=== PATIENT | male | born 1990 | race Caucasian/White ===

== ENCOUNTER 2024-05-20 17:15 | Inpatient (IN) | payer SELFPAY ==
[2024-05-20 17:53] VITALS: BMI 31.1
[2024-05-20] MEDS ORDERED: NALOXONE (NYS OPIOID OVERDOSE PROGRAM) 4 MG/0.1 ML SPRAY NS PRN (18:28)
[2024-05-20] MEDS ORDERED: BENZONATATE 200 MG CAPSULE PO PRN (18:28)
[2024-05-20] MEDS ORDERED: MAG HYDROX/AL HYDROX/SIMETH 30 ML UNIT-DOSE CUP PO PRN (18:28)
[2024-05-20] MEDS ORDERED: POLYETHYLENE GLYCOL (HEALTHYLAX) 3350 17 GM PACKET PO PRN (18:28)
[2024-05-20] MEDS ORDERED: ACETAMINOPHEN 325 MG TABLET (FP) PO PRN (18:28)
[2024-05-20] MEDS ORDERED: DICYCLOMINE HCL 10 MG CAPSULE PO PRN (18:28)
[2024-05-20] MEDS ORDERED: MAGNESIUM HYDROX 2400MG/30ML ORAL SUSPENSION 30 ML CUP PO PRN (18:28)
[2024-05-20] MEDS ORDERED: ONDANSETRON *ODT* 4 MG TABLET SL PRN (18:28)
[2024-05-20] MEDS ORDERED: LOPERAMIDE HCL 2 MG CAPSULE PO PRN (18:28)
[2024-05-20] MEDS ORDERED: BENZOCAINE/MENTHOL (CHLORASEPTIC ) LOZENGE MM PRN (18:28)
[2024-05-20] MEDS ORDERED: guaiFENesin 600 MG TABLET.ER (FP) PO PRN (18:28)
[2024-05-20] MEDS ORDERED: BISMUTH SUBSALICYLATE 524 MG/30 ML PO PRN (18:28)
[2024-05-20] MEDS ORDERED: NALOXONE (NARCAN) HCL 4 MG/0.1 ML SPRAY NS PRN (18:28)
[2024-05-20] MEDS ORDERED: IBUPROFEN 400 MG TABLET (FP) PO PRN (18:28)
[2024-05-20] MEDS ORDERED: ALBUTEROL SO4 HFA INHALER IH PRN (18:40)
[2024-05-20] MEDS: THIAMINE 100 MG TABLET PO SCH (22:00)
[2024-05-20] MEDS: METHOCARBAMOL 500 MG TABLET PO PRN (22:23)
[2024-05-20] MEDS: MELATONIN 5 MG TABLETS PO SCH (22:23)
[2024-05-20] MEDS: hydrOXYzine PAMOATE 25 MG CAPSULE (FP) PO PRN (22:23)
[2024-05-21] MEDS ORDERED: chlordiazePOXIDE HCL 25 MG CAPSULE PO PRN (09:34)
[2024-05-21] MEDS: PRENATAL VITAMINS W/ FOLIC ACID TABLET (FP) PO SCH (10:12)
[2024-05-21] MEDS: NICOTINE 21 MG/24 HOURS TOPICAL PATCH TD SCH (10:13)
[2024-05-21] MEDS: chlordiazePOXIDE HCL 25 MG CAPSULE PO SCH (10:14)
[2024-05-21] MEDS: NICOTINE POLACRILEX 4 MG GUM BUC PRN (10:16)
[2024-05-21 12:24] LABS: HEMATOCRIT 43.5 % (35.4-49); HEMOGLOBIN 15.2 GM/dL (11.7-16.9); MCHC 34.9 g/dl (32.0-35.9); MEAN CELL VOLUME 91.6 fl (80-96); MEAN PLT VOLUME 7.9 fl (7.5-11.1); PLATELET COUNT 223 10^3/uL (134-434); RBC 4.75 M/mm3 (4.00-5.60); RDW 12.6 % (11.9-15.9); WHITE BLOOD COUNT 9.5 K/mm3 (4.0-10.0)
[2024-05-21 14:56] LABS: CHLORIDE 104 mmol/L (98-107); POTASSIUM 4.4 mmol/L (3.5-5.1); SODIUM 136 mmol/L (136-145)
[2024-05-21 14:58] LABS: ALBUMIN 3.7 g/dl (3.4-5.0)
[2024-05-21 14:59] LABS: ANION GAP 5 mmol/L (4-13); BLOOD UREA NITROGEN 13.7 mg/dL (7-18); CO2 27 mmol/L (21-32); GLUCOSE,RANDOM 97 mg/dL (74-106)
[2024-05-21 15:02] LABS: SGOT/AST 89 U/L (15-37); SGPT/ALT 131 U/L (13-61)
[2024-05-21 15:04] LABS: BILIRUBIN,TOTAL 1.3 mg/dL (0.2-1); TOT PROT 7.4 g/dl (6.4-8.2)
[2024-05-21 15:05] LABS: ALK PHOS 135 U/L (45-117)
[2024-05-21] MEDS: NICOTINE POLACRILEX 4 MG LOZENGE BC PRN (22:26)
[2024-05-23] MEDS: chlordiazePOXIDE HCL 25 MG CAPSULE PO SCH (05:35)
[2024-05-23] MEDS: IBUPROFEN 600 MG TABLET (FP) PO PRN (12:49)
[2024-05-24] MEDS ORDERED: chlordiazePOXIDE HCL 10 MG CAPSULE PO PRN
[2024-05-24] MEDS: chlordiazePOXIDE HCL 10 MG CAPSULE PO SCH (05:55)
[2024-05-25] MEDS: chlordiazePOXIDE HCL 10 MG CAPSULE PO SCH (05:42)
[2024-05-25 20:50] VITALS: RESP 17
[2024-05-26] MEDS: chlordiazePOXIDE HCL 10 MG CAPSULE PO ONE (05:49)
[2024-05-26 07:09] VITALS: BP 131/78; PULSE 64; TEMP 97.2
== END 2024-05-26 07:21 | disposition home or self-care (01) | DRG 775 ==
LOC: YASAS 17:15 → Y6N 18:34
PROVIDERS: ADMIT Allergy & Immunology; ATTEND Surgery
PROC: HZ2ZZZZ Detoxification Services for Substance Abuse Treatment (ICD-10-PCS; principal; 2024-05-20)
DX: F10.230 Alcohol dependence with withdrawal, uncomplicated (principal); F13.20 Sedative, hypnotic or anxiolytic dependence, uncomplicated; F17.210 Nicotine dependence, cigarettes, uncomplicated; F19.282 Other psychoactive substance dependence with psychoactive substance-induced sleep disorder; F19.280 Other psychoactive substance dependence with psychoactive substance-induced anxiety disorder; F41.9 Anxiety disorder, unspecified; J45.909 Unspecified asthma, uncomplicated; K21.9 Gastro-esophageal reflux disease without esophagitis; Z87.891 Personal history of nicotine dependence; Z87.01 Personal history of pneumonia (recurrent); Z88.0 Allergy status to penicillin
CPT/HCPCS: 36415; 80053; 80305; 80307; 85027; 86780; 93005; 93010